=== PATIENT | male | born 1965 | race Caucasian/White ===

== ENCOUNTER → 2021-12-30 | Outpatient (CLI) | payer SELFPAY ==
[2021-12-30 11:08] LABS: PSA,Total- Diagnostic 6.27 ng/mL (0.0-4.0)
== END | disposition home or self-care (01) ==
LOC: LAB 09:33
PROVIDERS: PCP Orthopaedic Surgery; Visit Provider Registered Nurse
DX: R97.20 Elevated prostate specific antigen [PSA] (principal)
CPT/HCPCS: 36415; 84153

== ENCOUNTER → 2022-05-05 | Outpatient (CLI) | payer SELFPAY ==
[2022-05-06 13:37] LABS: PSA, Free 0.82 ng/mL; PSA, Free % 16.2 % (.)
== END | disposition home or self-care (01) ==
LOC: LAB 11:25
PROVIDERS: PCP Orthopaedic Surgery; Referring Provider Urology; Visit Provider Urology
DX: R97.20 Elevated prostate specific antigen [PSA] (principal)
CPT/HCPCS: 36415; 84153; 84154